=== PATIENT | female | born 1990 | race Two or more races ===

== ENCOUNTER 2016-10-19 08:18 | Inpatient (IN) ==
[2016-10-19] MEDS ORDERED: BUTORPHANOL 2 MG/ML VIAL IV ONE (08:30)
[2016-10-19] MEDS ORDERED: oxyCODONE/ACETAMINOPHEN 5-325 MG TABLET PO PRN ×2 (08:38)
[2016-10-19] MEDS ORDERED: LANOLIN 50% CREAM 0.3 OZ TUBE TOP PRN (08:38)
[2016-10-19] MEDS ORDERED: DIPH/TET/ACEL PERT BOOSTER VACCINE 0.5 ML VIAL IM ONE (08:38)
[2016-10-19] MEDS ORDERED: OXYTOCIN/LR 20 UNIT/1,000 ML BAG IV ONE ×2 (08:38→09:26)
[2016-10-19] MEDS ORDERED: BISACODYL 10 MG SUPP RECTAL PRN (08:38)
[2016-10-19] MEDS ORDERED: RHO(D) IMMUNE GLOBULIN 300 MCG SYRINGE IM ONE (08:38)
[2016-10-19] MEDS ORDERED: ACETAMINOPHEN 325 MG TABLET PO PRN (08:38)
[2016-10-19] MEDS ORDERED: ONDANSETRON 4 MG/2 ML VIAL IV PRN (08:38)
[2016-10-19] MEDS ORDERED: WITCH HAZEL PADS 100/JAR TOP PRN (08:38)
[2016-10-19] MEDS ORDERED: BENZOCAINE 20%/MENTHOL 0.5% SPRAY 56 GM CAN TOP PRN (08:38)
[2016-10-19] MEDS ORDERED: MEASLES/MUMPS/RUBELLA VACCINE 0.5 ML VIAL SUBCUT ONE (08:38)
[2016-10-19] MEDS ORDERED: HYDROCORTISONE 2.5% RECTAL CREAM 30 GM TUBE TOP PRN (08:38)
--- NOTE | 2016-10-19 08:40 | Operative Note ---
Date of procedure: 10/19/16 Procedure Preformed: Spontaneous vaginal delivery Patient precipitously delivered a liveborn male infant via spontaneous vaginal delivery. Placenta delivered spontaneously and intact. The perineum was found to be intact however she did have some pretty significant vaginal bleeding that was resolved with expression of a very large blood clot. After which all instruments removed from the patient was found to be stable estimated blood loss 500 mL. Baby and mother stable Surgeon / Physician: Nimo Mcgraw Post-op diagnosis: same Findings: Liveborn male Specimens: none sent Estimated blood loss: other (500 mL) Condition: stable Anesthesia: none Disposition: floor
[2016-10-19 09:45] LABS: Basophils # 0.1 10*3/uL (0.0-0.2); Basophils % 0.3 % (0.0-0.8); Eosinophils # 0.1 10*3/uL (0.0-0.87); Eosinophils % 0.7 % (0.00-10.9); Hematocrit 28.2 VOL% (35.7-47.0); Hemoglobin 9.2 GM/DL (12.0-16.0); Immature Granulocytes % 1.2 %; Immature Granulocytes Absolute 0.21 #; Lymphocytes # 3.4 10*3/uL (1.4-4.0); Lymphocytes % 19.5 % (21.3-54.2); Mean Corpuscular HGB Conc 32.6 GM/DL (32-36); Mean Corpuscular Hemoglobin 30 PG (27-34); Mean Corpuscular Volume 91.3 FL (87-102); Mean Platelet Volume 11.5 FL (9.6-12.0); Monocytes # 0.9 10*3/uL (0.11-0.8); Monocytes % 4.9 % (1.7-12.7); Neutrophils # 12.8 10*3/uL (1.4-7.4); Neutrophils % 73.4 % (38.7-73.9); Platelet Count 304 T/CUMM (130-400); Red Blood Count 3.09 MC/CUMM (3.8-5.5); White Blood Count 17.4 T/CUMM (4-12)
[2016-10-19 10:14] LABS: Albumin 2.8 G/DL (3.4-5.0); Bilirubin,Total 0.4 MG/DL (0.2-1.0); Calcium 8.6 MG/DL (8.5-10.1); Osmolality,Calculated 276.4 MOS/KG (273-304); Potassium 3.6 MMOL/L (3.5-5.1); Total Protein 6.3 G/DL (6.4-8.3); Uric Acid 3.7 MG/DL (2.6-6.0)
[2016-10-19 10:37] LABS: Rubella Antibody IgG 145.1 IU/ML
[2016-10-19 10:42] LABS: Apearance,Urine CLEAR (Clear); Bilirubin,Urine Negative (Negative); Blood, Urine Negative (Negative); Glucose,Urine (UA) Negative (Negative); Ketones,Urine Negative (Negative); Mucus,Urine Occasional /LPF (Occasional); Nitrite,Urine Negative (Negative); Protein,Urine 30 MG/DL; RBC,Urine 2 /HPF (0-4); Squamous Epithelial Cell,Urine Occasional /HPF (0-10); Urine Color Yellow (Yellow); Urine Specific Gravity 1.017 (1.001-1.035); WBC,Urine 1 /HPF (0-6)
[2016-10-19 10:49] LABS: Barbiturates Screen,Urine Negative (Negative); Benzodiazepines Screen,Urine Negative (Negative); Cannabinoid Screen,Urine Negative (Negative); Opiate Screen,Urine Negative (Negative); Phencyclidine Screen,Urine Negative (Negative)
[2016-10-19 11:16] LABS: HIV Antigen/Antibody Result Nonreactive (Nonreactive); Hepatitis B Surface Ag Quant 0.94 Index; Hepatitis B Surface Ag Result Negative (Negative)
[2016-10-19] MEDS: IBUPROFEN 800 MG TABLET PO PRN (11:28)
[2016-10-19] MEDS: DOCUSATE SODIUM 100 MG CAPSULE PO SCH ×2 (15:32→21:15)
[2016-10-20 05:55] LABS: Mean Corpuscular HGB Conc 32.2 GM/DL (32-36); Red Cell Distribution Width 14.1 % (9.3-17.3)
[2016-10-20 06:10] LABS: Basophils % 0.3 % (0.0-0.8); Eosinophils # 0.2 10*3/uL (0.0-0.87); Eosinophils % 1.7 % (0.00-10.9); Hematocrit 20.8 VOL% (35.7-47.0); Immature Granulocytes % 0.8 %; Lymphocytes # 4.5 10*3/uL (1.4-4.0); Lymphocytes % 35.6 % (21.3-54.2); Mean Corpuscular Hemoglobin 29 PG (27-34); Mean Corpuscular Volume 91.2 FL (87-102); Mean Platelet Volume 11.4 FL (9.6-12.0); Monocytes # 0.7 10*3/uL (0.11-0.8); Monocytes % 5.6 % (1.7-12.7); Neutrophils # 7.1 10*3/uL (1.4-7.4); Platelet Count 214 T/CUMM (130-400); White Blood Count 12.6 T/CUMM (4-12)
[2016-10-20 06:38] LABS: Red Blood Count 2.28 MC/CUMM (3.8-5.5)
[2016-10-20 06:39] LABS: Hemoglobin 6.7 GM/DL (12.0-16.0)
[2016-10-20] MEDS: IBUPROFEN 800 MG TABLET PO PRN ×4 (08:35→23:15)
[2016-10-20] MEDS: DOCUSATE SODIUM 100 MG CAPSULE PO SCH ×2 (08:38→21:15)
[2016-10-21 07:13] VITALS: BP 120/73
--- NOTE | 2016-10-21 08:42 | OB/GYN History & Physical ---
History of Present Illness Chief complaint: labor History of present illness: Ms. Baca is a 26 year old female multiporous female who delivered in route a liveborn infant via . Allergies Allergy/AdvReac Type Severity Reaction Status Date / Time No Known Allergies Allergy Verified 10/19/16 08:27 12 point system: reviewed and no additional remarkable complaints except as stated Medical,Surgical,& Family Hx - Family History Family History: Reports;: Additional Family History (ASTHMA) - Social History Smoking Status: Current every day smoker Frequency of Alcohol Use: None Type of Drug Use: None Exam MANAGER JAVA - Constitutional Vitals: Vital Signs Temp Pulse Resp BP Pulse Ox 10/21/16 07:13 97.8 F 88 18 120/73 98 10/21/16 04:00 98 F 103 H 18 129/83 10/21/16 02:00 18 10/21/16 00:00 97.7 F 85 18 118/71 97 10/20/16 20:00 98.4 F 100 H 18 116/75 96 10/20/16 16:00 97.7 F 82 18 121/76 98 10/20/16 11:32 98.1 F 73 18 114/85 98 General appearance: mild distress - Head Head exam: Present: normocephalic - ENT ENT exam: Present: normal exam - Neck Neck exam: Present: normal inspection - Respiratory Respiratory exam: Present: clear to auscultation bilaterally - Cardiovascular Cardiovascular exam: Present: regular rate and rhythm - GI/Abdominal GI/Abdominal exam: Present: soft (uterus firm) - Extremities Exam Extremities exam: Present: normal inspection - Back Exam Back exam: Present: normal inspection - Neurological Exam Neurological exam: Present: alert, oriented X3 - Psychiatric Psychiatric exam: Present: normal affect, normal mood - Skin Skin exam: Present: normal color, warm Assessment and Plan (1) 37 weeks gestation of Status: Acute Current Visit: Yes (2) Spontaneous vaginal delivery Status: Acute Assessment and plan: Routine care Current Visit: Yes Results - Labs CBC & BMP: 10/20/16 06:25 10/19/16 08:48 Quality Measures - VTE Contraindication to Pharmacological VTE Prophylaxis: Clinical assessment deems Pt at low risk, no prophalaxis needed
--- NOTE | 2016-10-21 08:44 | OB/GYN Progress Note ---
Assessment and Plan (1) 37 weeks gestation of Status: Acute Current Visit: Yes (2) Spontaneous vaginal delivery Status: Acute Assessment and plan: Routine care Current Visit: Yes DIAL MARKER - PN: Subj Interval history: No complaints. Patient plans for tubal ligation for contraception Exam DIAL MARKER - Constitutional Vitals: Vital Signs Temp Pulse Resp BP Pulse Ox 10/21/16 07:13 97.8 F 88 18 120/73 98 10/21/16 04:00 98 F 103 H 18 129/83 10/21/16 02:00 18 10/21/16 00:00 97.7 F 85 18 118/71 97 10/20/16 20:00 98.4 F 100 H 18 116/75 96 10/20/16 16:00 97.7 F 82 18 121/76 98 10/20/16 11:32 98.1 F 73 18 114/85 98 - Antepartum / Post Post Exam Abdomen obstetrics: Present: bowel sounds normal Vagina: Present: normal moisture Uterus exam: Present: normal size, normal contour Anus/Rectum: Present: normal perianal skin - Head Head exam: Present: normocephalic - Respiratory Respiratory exam: Present: clear to auscultation bilaterally - Cardiovascular Cardiovascular exam: Present: regular rate and rhythm - GI/Abdominal GI/Abdominal exam: Present: normal bowel sounds, soft - Extremities Exam Extremities exam: Present: normal inspection - Back Exam Back exam: Present: normal inspection - Neurological Exam Neurological exam: Present: alert, oriented X3 - Psychiatric Psychiatric exam: Present: normal affect, normal mood - Skin Skin exam: Present: normal color, warm Results - Labs CBC & BMP: 10/20/16 06:25 10/19/16 08:48
--- NOTE | 2016-10-21 08:47 | Discharge Summary ---
Hospital Course - Hospital Course Hospital Course: This is a 26-year-old grand multiparous female who delivered precipitously a liveborn via spontaneous vaginal delivery. Hospital course unremarkable by day #2 she was ready for discharge. Patient plans for tubal ligation. Diagnosis - Discharge Diagnosis (1) 37 weeks gestation of Status: Acute (2) Spontaneous vaginal delivery Status: Acute Specialty Discharge - Follow Up or Referrals Discharge Plan - Discharge Data Disposition: Disch To Home/Self Care Condition at Discharge: Stable Discharge Diet: advance to your usual diet Activity: resume usual activities as tolerated (Pelvic rest) Hygiene: no restrictions Weight Bearing at Discharge: full weight bearing Driving: no restrictions Contact your physician if you experience:: fever over 101, Difficulty voiding, Redness or swelling, Nausea/Vomiting, Shortness of breath, Bleeding, pain uncontrolled by pain medications - Discharge Medications New Ibuprofen Tab [Motrin Tab] 800 mg PO Q6H PRN #30 tablet PRN Reason: Pain Moderate (4-7) Ferrous Sulfate 325 mg PO BID #60 tablet - Follow Up or Referral Follow Up: Nimo Mcgraw MD [Physician] - 2 Weeks - Forms/Instructions Instructions: Vaginal Delivery (DC), Bleeding (DC) Exam - Constitutional Vitals: Period Temp Pulse Resp BP Sys/German Pulse Ox Last 24 Hr 97.7 F-98.4 F 73-103 18-18 114-129/71-85 96-98 General appearance: no acute distress - Head Head exam: Present: normocephalic - ENT ENT exam: Present: normal exam - Neck Neck exam: Present: normal inspection - Respiratory Respiratory exam: Present: clear to auscultation bilaterally - Cardiovascular Cardiovascular exam: Present: regular rate and rhythm - GI/Abdominal GI/Abdominal exam: Present: normal bowel sounds, soft - Extremities Exam Extremities exam: Present: normal inspection - Back Exam Back exam: Present: normal inspection - Neurological Exam Neurological exam: Present: alert, oriented X3 - Psychiatric Psychiatric exam: Present: normal affect, normal mood - Skin Skin exam: Present: normal color, warm DS: Provider Date of admission: 10/19/16 08:18 Primary care physician: . No PCP Attending physician on admission: Nimo Mcgraw MD Consults: 10/19/16 08:38 Consult to Gravel Roofer [CONS] Routine Consult Gravel Roofer: Breast Feeding 05/16/17 10:49 Consult to Case Mgmt/Social Srvs [CONS] Routine Reason for Case Mgmt/Social Srvs: Other Consult Comment: HOME DELIVERY/NO CARE Discharging clinician: Nimo Mcgraw MD
[2016-10-21] MEDS: DOCUSATE SODIUM 100 MG CAPSULE PO SCH (09:27)
== END 2016-10-21 13:15 | disposition home or self-care (01) | DRG 775 ==
LOC: N.LD 08:18 → N.OB 10:46
PROVIDERS: ADMIT Obstetrics & Gynecology; ATTEND Obstetrics & Gynecology